=== PATIENT | male | born 1950 | race Caucasian/White ===

== ENCOUNTER → 2018-04-12 | Outpatient (CLI) | payer MEDICARE, OTHER ==
[~2018-04-12] MED LIST: FLUT16SP22 NSEACH; HYDR1TAB PO; METO10TA3 PO; NAPR550T PO; PANT40TA3 PO; SUCR1TAB36 PO
--- NOTE | 2018-04-12 11:10 | Diagnostic Imaging Report ---
INDICATION: Right leg pain TECHNIQUE: Grayscale with color-flow and Doppler waveform evaluation of the right lower extremity deep venous system. CORRELATION STUDY: None FINDINGS: Color and grayscale sonographic images demonstrate no intraluminal defect within the visualized portion of the common femoral, superficial femoral and/or popliteal veins to suggest thrombus formation. These vessels demonstrate normal response to compression and augmentation. No soft tissue fluid collection. IMPRESSION: 1. Negative for deep venous thrombosis of the right leg. Dictated by: Dictated on workstation # [id number]
== END ==
LOC: RAD 07:52
PROVIDERS: ATTEND Family Medicine
DX: M79.604 Pain in right leg (principal)

== ENCOUNTER → 2018-05-30 | Outpatient (CLI) | payer MEDICARE, OTHER ==
--- NOTE | 2018-05-30 14:54 | Diagnostic Imaging Report ---
Indication: Right knee pain AP, oblique, and lateral views of the right knee are obtained. No fracture or acute bony abnormality is seen. The lateral joint space is preserved. There is moderate medial joint space narrowing with osteophyte formation as well as prominent patellofemoral spurring. There appears to be a small joint effusion. IMPRESSION: Osteoarthritic changes in the right knee involving the medial and patellofemoral compartment. Small joint effusion. No acute fracture. Dictated by: Dictated on workstation # [id number]
== END ==
LOC: RAD 13:22
PROVIDERS: ATTEND Family Medicine
DX: M17.11 Unilateral primary osteoarthritis, right knee (principal)
CPT/HCPCS: 73562

== ENCOUNTER 2018-07-12 09:15 | Outpatient (RCR) | payer MEDICARE, OTHER | END 2018-07-12 09:45 | disposition home or self-care (01) | PROVIDERS: ATTEND Family Medicine | DX: M79.604 Pain in right leg (principal); R29.898 Other symptoms and signs involving the musculoskeletal system ==

== ENCOUNTER 2021-03-17 05:37 | Outpatient (CLI) | payer MEDICARE, OTHER ==
[~2021-03-17] VITALS: Ht 167.7 cm; Wt 68.2 kg
[~2021-03-17 05:37] MED LIST changes: -METO10TA3 PO; +MTC10T PO; -PANT40TA3 PO; +PANT40TA52 PO
[2021-03-17] MEDS ORDERED: LORA10TA7 PO (10:52)
[2021-03-17] MEDS ORDERED: PHEN-832 PO (10:52)
== END 2021-03-18 09:51 | disposition home or self-care (01) ==
LOC: PREOP 05:37
PROVIDERS: ATTEND Specialist
DX: Z01.818 Encounter for other preprocedural examination (principal)

== ENCOUNTER 2021-03-19 06:26 | Day surgery (SDC) | payer MEDICARE, OTHER ==
[~2021-03-19] VITALS: Ht 167.7 cm; Wt 68.2 kg
[~2021-03-19 06:26] MED LIST changes: +LORA10TA7 PO; +PHEN-832 PO
[2021-03-19 06:40] VITALS: BP 123/73
[2021-03-19] MEDS ORDERED: POVIDONE (BETADINE) OPHTH SOLN 5% 30 ML OP ONE (06:45)
[2021-03-19] MEDS ORDERED: MOXIFLOXACIN OPHTH SOLN 5 MG/ML 0.3 ML SYRINGE OP ONE (06:45)
[2021-03-19] MEDS ORDERED: LIDOCAINE PF 1% 2 ML VIAL IR PRN (06:45)
[2021-03-19] MEDS ORDERED: TIMOLOL MALEATE 0.5% 5 ML (TIMOPTIC) BTL OU PRN (06:45)
[2021-03-19] MEDS ORDERED: acetaZOLAMIDE ER 500 MG CAP (DIAMOX SEQUELS) PO ONE (06:45)
[2021-03-19] MEDS: TETRACAINE 0.5% OPHTH SOLN 4 ML BTL (SINGLE DOSE ONLY) OU PRN ×4 (06:59→07:15)
[2021-03-19] MEDS: TROPICAMIDE 1% OPH SOLN (MYDRIACYL) 15 ML BTL OP SCH ×3 (07:10→07:21)
[2021-03-19] MEDS: PHENYLEPHRINE 10% OPHTH (NEO-SYN) 5 ML BTL OU SCH ×3 (07:10→07:21)
--- NOTE | 2021-03-19 07:46 | Ophthalmologist Pre-Op Note ---
Pre-Operative Progress Note H&P Reviewed The H&P was reviewed, patient examined and no changes noted. Date H&P Reviewed: March 19, 2021 Time H&P Reviewed: 07:46 Pre-Op Dx Cataract, Right Eye DG GARCIA MD March 19, 2021 07:46
--- NOTE | 2021-03-19 08:07 | Ophthalmology Operative Report ---
Cataract removal/placement IOL PREOPERATIVE DIAGNOSIS: Cataract Right Eye POSTOPERATIVE DIAGNOSIS: Cataract Right Eye PROCEDURE: Cataract removal and placement of posterior chamber implant, right eye SURGEON: Chris Garcia ANESTHESIA: Topical with sedation COMPLICATIONS: None ESTIMATED BLOOD LOSS: Minimal DESCRIPTION OF PROCEDURE: After proper informed consent was obtained, the patient, a 70 male, was taken to the Operating Room and the right eye was anesthetized with tetracaine. The right eye was then prepped and draped in the usual manner. A wire lid speculum was placed. A paracentesis was made at the left hand position. Preservative free lidocaine was injected into the anterior chamber followed by viscoelastic. A clear corneal incision was made in the temporal position. A capsulorrhexis was preformed and the central nuclear and cortical material were removed. The posterior capsule was polished and Nils 20.0 AU00T0 IOL was placed into the capsular bag. The residual viscoelastic was aspirated and balanced saline solution was injected into the anterior chamber. Moxifloxacin was injected into the anterior chamber. The wound was checked and found to be water tight. The patient tolerated the procedure well without complications. CHRIS GARCIA MD March 19, 2021 08:07
[2021-03-19 08:23] VITALS: BP 117/76
--- NOTE | 2021-03-21 12:41 | Anesthesia-General Post-Op ---
MAC Significant Intra-Op Events Notes post date entry from 03/19/21 at 1315 Patient Condition Mental Status/LOC: Same as Preop Cardiovascular: Satisfactory Nausea/Vomiting: Absent Respiratory: Satisfactory Pain: Controlled Complications: Absent Post Op Complications Complications None Follow Up Care/Instructions Patient Instructions None needed. Anesthesiology Discharge Order Discharge Order Patient is doing well, no complaints, stable vital signs, no apparent adverse anesthesia problems. No complications reported per nursing. COLT WILSON CRNA March 21, 2021 12:41
== END 2021-03-19 08:23 | disposition home or self-care (01) ==
LOC: SDC 06:26
PROVIDERS: ATTEND Specialist
DX: H25.11 Age-related nuclear cataract, right eye (principal); Z79.899 Other long term (current) drug therapy; Z79.51 Long term (current) use of inhaled steroids; Z98.890 Other specified postprocedural states
CPT/HCPCS: 66984; V2632

== ENCOUNTER 2021-03-26 05:59 | Outpatient (CLI) | payer MEDICARE, OTHER ==
[2021-03-30] MEDS ORDERED: FLUT16SP22 NS (09:25)
== END 2021-03-30 09:28 | disposition home or self-care (01) ==
LOC: PREOP 05:59
PROVIDERS: ATTEND Specialist
DX: Z01.818 Encounter for other preprocedural examination (principal)

== ENCOUNTER 2021-04-02 06:30 | Day surgery (SDC) | payer MEDICARE, OTHER ==
[~2021-04-02] VITALS: Ht 167.7 cm; Wt 68.2 kg
[~2021-04-02 06:30] MED LIST changes: +FLUT16SP22 NS
[2021-04-02 06:40] VITALS: BP 129/82
[2021-04-02] MEDS ORDERED: TIMOLOL MALEATE 0.5% 5 ML (TIMOPTIC) BTL OU PRN (06:45)
[2021-04-02] MEDS ORDERED: POVIDONE (BETADINE) OPHTH SOLN 5% 30 ML OP ONE (06:45)
[2021-04-02] MEDS ORDERED: LIDOCAINE PF 1% 2 ML VIAL IR PRN (06:45)
[2021-04-02] MEDS ORDERED: MOXIFLOXACIN OPHTH SOLN 5 MG/ML 0.3 ML SYRINGE OP ONE (06:45)
[2021-04-02] MEDS: TETRACAINE 0.5% OPHTH SOLN 4 ML BTL (SINGLE DOSE ONLY) OU PRN ×4 (06:47→07:14)
[2021-04-02] MEDS ORDERED: MIDAZOLAM 2 MG/2 ML (VERSED) VIAL ONE (06:47)
[2021-04-02] MEDS: TROPICAMIDE 1% OPH SOLN (MYDRIACYL) 15 ML BTL OP SCH ×3 (07:01→07:14)
[2021-04-02] MEDS: PHENYLEPHRINE 10% OPHTH (NEO-SYN) 5 ML BTL OU SCH ×3 (07:01→07:14)
--- NOTE | 2021-04-02 07:53 | Ophthalmologist Pre-Op Note ---
Pre-Operative Progress Note H&P Reviewed The H&P was reviewed, patient examined and no changes noted. Date H&P Reviewed: Apr 02, 2021 Time H&P Reviewed: 07:53 Pre-Op Dx Cataract, Right Eye DG GARCIA MD Apr 02, 2021 07:53
[2021-04-02] MEDS ORDERED: acetaZOLAMIDE ER 500 MG CAP (DIAMOX SEQUELS) PO ONE (08:00)
--- NOTE | 2021-04-02 08:15 | Ophthalmology Operative Report ---
Cataract removal/placement IOL PREOPERATIVE DIAGNOSIS: Cataract Left Eye POSTOPERATIVE DIAGNOSIS: Cataract Left Eye PROCEDURE: Cataract removal and placement of posterior chamber implant, left eye SURGEON: Chris Garcia ANESTHESIA: Topical with sedation COMPLICATIONS: None ESTIMATED BLOOD LOSS: Minimal DESCRIPTION OF PROCEDURE: After proper informed consent was obtained, the patient, a 70 male, was taken to the Operating Room and the left eye was anesthetized with tetracaine. The left eye was then prepped and draped in the usual manner. A wire lid speculum was placed. A paracentesis was made at the left hand position. Preservative free lidocaine was injected into the anterior chamber followed by viscoelastic. A clear corneal incision was made in the temporal position. A capsulorrhexis was preformed and the central nuclear and cortical material were removed. The posterior capsule was polished and an Nils 19.5 AU00T0 was placed into the capsular bag. The residual viscoelastic was aspirated and balanced saline solution was injected into the anterior chamber. Moxifloxacin was injected into the anterior chamber. The wound was checked and found to be water tight. The patient tolerated the procedure well without complications. CHRIS GARCIA MD Apr 02, 2021 08:15
[2021-04-02 08:25] VITALS: BP 115/72
--- NOTE | 2021-04-02 14:00 | Anesthesia-General Post-Op ---
MAC Patient Condition Mental Status/LOC: Same as Preop Cardiovascular: Satisfactory Nausea/Vomiting: Absent Respiratory: Satisfactory Pain: Controlled Complications: Absent Post Op Complications Complications None Follow Up Care/Instructions Patient Instructions None needed. Anesthesiology Discharge Order Discharge Order Patient is doing well, no complaints, stable vital signs, no apparent adverse anesthesia problems. No complications reported per nursing. JOSE L SCHMIDT CRNA Apr 02, 2021 14:00
== END 2021-04-02 08:25 | disposition home or self-care (01) ==
LOC: SDC 06:30
PROVIDERS: ATTEND Specialist
DX: H25.12 Age-related nuclear cataract, left eye (principal)
CPT/HCPCS: 66984; V2632

== ENCOUNTER 2022-09-27 05:42 | Outpatient (CLI) | payer MEDICARE, OTHER ==
[~2022-09-27] VITALS: Ht 167.7 cm; Wt 68.2 kg
[2022-09-27] MEDS ORDERED: VITAMIN D3 (11:02)
[2022-09-27] MEDS ORDERED: ZINC (11:02)
[2022-09-27] MEDS ORDERED: FISH OIL (11:02)
[2022-09-27] MEDS ORDERED: GLUC100016 PO (14:03)
== END 2022-09-27 14:03 | disposition home or self-care (01) ==
LOC: PREOP 05:42
PROVIDERS: ATTEND Specialist
DX: Z01.818 Encounter for other preprocedural examination (principal)

== ENCOUNTER 2022-09-30 08:51 | Day surgery (SDC) | payer MEDICARE ==
[~2022-09-30] VITALS: Ht 167 cm; Wt 68.2 kg
[~2022-09-30 08:51] MED LIST changes: +FISH OIL; +GLUC100016 PO; +VITAMIN D3; +ZINC
[2022-09-30 09:15] VITALS: BP 141/82
[2022-09-30] MEDS ORDERED: TETRACAINE 0.5% OPHTH SOLN 4 ML BTL (SINGLE DOSE ONLY) OU PRN (09:15)
[2022-09-30] MEDS ORDERED: TROPICAMIDE 1% OPH SOLN (MYDRIACYL) 15 ML BTL OU PRN (09:15)
[2022-09-30] MEDS ORDERED: PHENYLEPHRINE 10% OPHTH (NEO-SYN) 5 ML BTL OU PRN (09:15)
--- NOTE | 2022-09-30 09:40 | Ophthalmologist Pre-Op Note ---
Pre-Operative Progress Note H&P Reviewed The H&P was reviewed, patient examined and no changes noted. Date H&P Reviewed: Sep 30, 2022 Time H&P Reviewed: 09:01 Pre-Op Dx Secondary Cataract, Right Eye DG GARCIA MD Sep 30, 2022 09:40
--- NOTE | 2022-09-30 09:41 | Ophthalmology Operative Report ---
YAG Capsulotomy PREOPERATIVE DIAGNOSIS: Secondary Cataract Left Eye POSTOPERATIVE DIAGNOSIS: Secondary Cataract Left Eye PROCEDURE: YAG Capsulotomy, left eye SURGEON: Chris Garcia ANESTHESIA: Topical anesthesia COMPLICATIONS: None ESTIMATED BLOOD LOSS: Minimal DESCRIPTION OF PROCEDURE: After proper informed consent was obtained, the patient's, a 72 male left eye received one drop of Tropicamide and one drop of Tetracaine. The patient was then placed at the YAG laser and using a power of [3.5 ] millijoules and [16 ] bursts were used to fashion a central capsulotomy. The patient tolerated the procedure well without complications. CHRIS GARCIA MD Sep 30, 2022 09:41
== END 2022-09-30 09:26 | disposition home or self-care (01) ==
LOC: SDC 08:51 → EDSTATUS 09:45
PROVIDERS: ATTEND Specialist
DX: H26.492 Other secondary cataract, left eye (principal)